=== PATIENT | male | born 1990 | race African-American/Black ===

== ENCOUNTER 2019-10-28 21:14 | Emergency (ER) | payer MEDICAID ==
[~2019-10-28] VITALS: Ht 182.9 cm; Wt 90.7 kg
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
--- NOTE | 2019-10-28 21:38 | NUR ---
Patient signed out AMA. Dr. Stapleton explained all risks and benefits and still refused. ID band removed. Patient left ER, with fair gait.
== END 2019-10-28 21:38 | disposition left against medical advice (07) ==
LOC: ER 21:21
DX: S09.90XA Unspecified injury of head, initial encounter (principal); Y00.XXXA Assault by blunt object, initial encounter; Y92.410 Unspecified street and highway as the place of occurrence of the external cause; S60.512A Abrasion of left hand, initial encounter; S60.511A Abrasion of right hand, initial encounter; M25.561 Pain in right knee
CPT/HCPCS: A4663